=== PATIENT | male | born 1955 | race Two or more races ===

== ENCOUNTER 2024-12-10 07:40 | Day surgery (SDC) | payer OTHER ==
[~2024-12-10 07:40] MED LIST: ACID REDUCER20 M1 PO; AMLODIPINE BESY10 MG PO; PEPCID AC20 MG PO; SIMVASTATIN20 MG PO
[2024-12-10] MEDS ORDERED: POVIDONE-IODINE 118 ML BOTT TOP ONE (12:15)
[2024-12-10] MEDS ORDERED: BUPIVACAINE HCL/PF 0.25% 30ML VIAL InF ONE (12:15)
[2024-12-10] MEDS ORDERED: CEFTRIAXONE SODIUM 2,000 MG VIAL IV ONE (12:15)
[2024-12-10] MEDS ORDERED: LIDOCAINE HCL 1% 20 ML VIAL IJ ONE (12:15)
[2024-12-10] MEDS ORDERED: METRONIDAZOLE/SODIUM CHLORIDE 500 MG/100 ML PIGGYBACK IV ONE ×2 (12:15)
[2024-12-10] MEDS ORDERED: CHLORHEXIDINE GLUCONATE 120 ML BOTTLE TOP ONE (12:15)
[2024-12-10] MEDS ORDERED: DIBUCAINE 15 GM OINT..GM. TUBE RECTAL ONE (13:15)
[2024-12-10] MEDS ORDERED: HEMOSTATIC MATRIX 1 KIT KIT TOP ONE (13:15)
== END 2024-12-10 16:30 | disposition home or self-care (01) ==
LOC: CIR.AMB 07:40
PROVIDERS: ATTEND Colon & Rectal Surgery
DX: K64.2 Third degree hemorrhoids (principal); K64.4 Residual hemorrhoidal skin tags; I10 Essential (primary) hypertension; E78.5 Hyperlipidemia, unspecified; M19.90 Unspecified osteoarthritis, unspecified site; K21.9 Gastro-esophageal reflux disease without esophagitis